=== PATIENT | female | born 1975 | race Two or more races ===

== ENCOUNTER → 2023-06-20 | Outpatient (CLI) | payer MEDICAID ==
[2023-06-20 12:39] LABS: Follicle Stimulating Hormone 57.6 IU/L (SEE BELOW)
[2023-06-20 12:40] LABS: Leuteinizing Hormone 28.8 IU/L
== END | disposition home or self-care (01) ==
LOC: LAB 11:38
PROVIDERS: ATTEND Obstetrics & Gynecology
DX: R10.2 Pelvic and perineal pain (principal)
CPT/HCPCS: 36415; 82670; 83001; 83002; 84403; 84443

== ENCOUNTER → 2023-07-28 | Outpatient (CLI) | payer MEDICAID ==
[2023-07-28 08:34] LABS: Basophils # (auto) 0.1 10 ^3/uL (0-0.2); Eosinophils # (auto) 0.2 10 ^3/uL (0-0.8); Eosinophils % (auto) 3.5 % (0.0-7.0); Hematocrit 40.8 % (36.0-46.0); Lymphocytes # (auto) 1.9 10 ^3/uL (0.4-5.4); Mean Corpuscular Hemoglobin 32.9 pg (28.0-32.0); Mean Corpuscular Hgb Conc. 34.3 g/dL (32.0-36.0); Monocytes # (auto) 0.4 10 ^3/uL (0-1.3); Monocytes % (auto) 6.8 % (0.0-12.0); Neutrophils # (auto) 2.7 10 ^3/uL (1.6-8.6); Neutrophils % (auto) 51.7 % (37.0-80.0); Nucleated Red Blood Cells % 0.1 %; Red Blood Cells 4.25 10^6/uL (4.0-5.20); Red Cell Distribution Width 12.1 % (11.8-14.3); White Blood Cell 5.2 10^3/uL (4.4-10.8)
[2023-07-28 09:25] LABS: Alanine Aminotransferase 29 U/L (7-40); Albumin 4.8 g/dL (3.2-4.8); Alkaline Phosphatase 54 U/L (46-116); Anion Gap 8 (5-15); Aspartate Aminotransferase 18 U/L (13-40); BUN/Creatinine Ratio 11.6 (10.0-20.0); Blood Urea Nitrogen 11 mg/dL (9-23); Calcium 10.1 mg/dL (8.5-10.1); Carbon Dioxide 28 mmol/L (20-30); Chloride 103 mmol/L (98-107); Glucose 130 mg/dL (74-106); LDL Cholesterol 57 mg/dL (< 100); Potassium 4.9 mmol/L (3.5-5.1); Sodium 139 mmol/L (136-145); Triglycerides 139 mg/dL (< 150)
[2023-07-28 09:26] LABS: Bilirubin, Total 0.5 mg/dL (0.2-1.0); Cholesterol 111 mg/dL (< 200); HDL Cholesterol 40 mg/dL (40-59); Total Protein 7.3 g/dL (5.7-8.2)
== END | disposition home or self-care (01) ==
LOC: LAB 08:15
DX: Z00.01 Encounter for general adult medical examination with abnormal findings (principal); E11.69 Type 2 diabetes mellitus with other specified complication; E78.5 Hyperlipidemia, unspecified
CPT/HCPCS: 36415; 80053; 80061; 83036; 84439; 84443; 85025

== ENCOUNTER → 2024-07-02 | Outpatient (CLI) | payer MEDICAID ==
[2024-07-02 08:36] LABS: Basophils # (auto) 0 10 ^3/uL (0-0.2); Basophils % (auto) 0.8 % (0.0-2.0); Eosinophils # (auto) 0.2 10 ^3/uL (0-0.8); Eosinophils % (auto) 3.4 % (0.0-7.0); Hematocrit 40.7 % (36.0-46.0); Hemoglobin 14.3 g/dL (12.2-16.2); Lymphocytes # (auto) 1.6 10 ^3/uL (0.4-5.4); Lymphocytes % (auto) 30.9 % (10.0-50.0); Mean Corpuscular Hemoglobin 33.6 pg (28.0-32.0); Monocytes # (auto) 0.5 10 ^3/uL (0-1.3); Monocytes % (auto) 9.4 % (0.0-12.0); Neutrophils # (auto) 2.9 10 ^3/uL (1.6-8.6); Neutrophils % (auto) 55.5 % (37.0-80.0); Platelet Count (auto) 246 10^3/uL (140-450); Red Blood Cells 4.24 10^6/uL (4.0-5.20); Red Cell Distribution Width 12.4 % (11.8-14.3); White Blood Cell 5.3 10^3/uL (4.4-10.8)
[2024-07-02 08:52] LABS: Alanine Aminotransferase 41 U/L (7-40); Alkaline Phosphatase 60 U/L (46-116); Anion Gap 10 (5-15); Aspartate Aminotransferase 22 U/L (13-40); BUN/Creatinine Ratio 14.3 (10.0-20.0); Blood Urea Nitrogen 13 mg/dL (9-23); Calcium 9.9 mg/dL (8.7-10.4); Carbon Dioxide 25 mmol/L (20-31); Chloride 103 mmol/L (98-107); Glucose 122 mg/dL (74-106); LDL Cholesterol 47 mg/dL (< 100); Potassium 4.3 mmol/L (3.5-5.1); Sodium 138 mmol/L (136-145); Triglycerides 137 mg/dL (< 150)
[2024-07-02 08:53] LABS: Albumin 4.6 g/dL (3.2-4.8); Bilirubin, Total 0.5 mg/dL (0.2-1.0); Cholesterol 104 mg/dL (< 200); HDL Cholesterol 45 mg/dL (40-59); Total Protein 7.3 g/dL (5.7-8.2)
[2024-07-02 09:06] LABS: Creatinine, Urine 54.97 mg/dL (30.0-125.0)
[2024-07-02 09:09] LABS: Micro Albumin < 3.0 mg/L (<30.0)
== END | disposition home or self-care (01) ==
LOC: LAB 08:14
PROVIDERS: ATTEND Nurse Practitioner Family
DX: I10 Essential (primary) hypertension (principal); E11.69 Type 2 diabetes mellitus with other specified complication
CPT/HCPCS: 36415; 80053; 80061; 82043; 82306; 82570; 83036; 84443; 85025